=== PATIENT | male | born 2000 | race Native Hawaiian/Other Pacific Islander ===

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

== ENCOUNTER 2021-12-03 08:36 | Emergency (ER) | payer BC ==
[~2021-12-03] VITALS: Ht 180.3 cm; Wt 97.5 kg
[2021-12-03 08:42] VITALS: BP 128/56; TEMP 98.1
[2021-12-03 09:35] LABS: PLATELET COUNT 320 K/uL (142-355)
[2021-12-03 09:42] LABS: POTASSIUM 3.8 mmol/L (3.6-5.2)
== END 2021-12-03 11:09 | disposition home or self-care (01) ==
LOC: ED 08:36
PROVIDERS: Emergency Medicine
DX: N20.1 Calculus of ureter (principal)
CPT/HCPCS: 80048; 81002; 81015; 85027; 96374; 96375; 99284; J1170; J1885; J2405

== ENCOUNTER 2021-12-29 09:32 | Outpatient (CLI) | payer BC | END 2021-12-29 20:54 | disposition home or self-care (01) | LOC: CT 09:32 | PROVIDERS: ATTEND Nurse Practitioner Family | DX: R10.9 Unspecified abdominal pain (principal) ==